=== PATIENT | male | born 1955 | race Caucasian/White ===

== ENCOUNTER → 2018-09-10 | Outpatient (CLI) | payer OTHER ==
--- NOTE | 2018-09-10 13:41 | CT ---
EXAMINATION TYPE: CT pelvis w con DATE OF EXAM: 09/10/2018 COMPARISON: None HISTORY: Prostate cancer. CT DLP: 1491 mGycm Automated exposure control for dose reduction was used. CONTRAST: CT scan of the pelvis is performed with IV Contrast, patient injected with 100 mL of Isovue M300. FINDINGS- There is a 8 mm sclerotic focus in the left iliac bone. No additional bony lesions are seen. Bowel gas pattern is nonspecific. Bladder has a normal appearance. Prostate is homogeneous. No eviden ce of pathologic adenopathy or free fluid. Atherosclerotic change of the vasculature. Visualized appe ndix normal. Portions of the spleen, liver., Adrenal glands and pancreas demonstrate no abnormality IMPRESSION: 1. There is a single 8 mm lesion involving the left iliac bone which demonstrates a sclerotic pattern . Despite the patient having a history of prostate cancer, the most likely etiology is a bone island. A bone scan is scheduled but has not been completed. Activity of this lesion can be evaluated with a bone scan is completed. Little or no activity would favor bone island. Intense activity would favor a metastatic lesion.
--- NOTE | 2018-09-10 15:53 | NM ---
EXAMINATION TYPE: NM bone scan whole body DATE OF EXAM: 09/10/2018 COMPARISON: CT pelvis same date HISTORY: Prostate cancer Delayed whole-body scanning was performed following the injection of 25.1 mCi Tc 99m MDP. Images acq uired 3 hours post injection. FINDINGS: There is mild increased uptake seen within the left ilium as compared to the right the site of patien t's sclerotic focus on CT. Uptake within the shoulders, sternoclavicular joints, knees, feet is likel y degenerative. Soft tissue uptake is normal. Uptake in the maxillary and mandibular regions likely d ue to periodontal disease. IMPRESSION: Cannot exclude metastatic focus to the left ilium. Asymmetric uptake is present to the left posterior ilium as compared to the right.
== END | disposition home or self-care (01) ==
LOC: RADNMMAIN 11:04
PROVIDERS: ATTEND Urology
DX: M89.9 Disorder of bone, unspecified (principal); C61 Malignant neoplasm of prostate
CPT/HCPCS: 72193; 78306; A9503; Q9967

== ENCOUNTER → 2018-10-14 | Outpatient (CLI) | payer OTHER ==
[2018-10-14 10:57] LABS: Basophils % (A) 1 %; Eosinophils # (A) 0.5 k/uL (0-0.7); Eosinophils % (A) 7 %; HCT 45.1 % (39.0-53.0); HGB 15.3 gm/dL (13.0-17.5); Lymphocytes # (A) 1.6 k/uL (1.0-4.8); Lymphocytes % (A) 24 %; MCH 31.8 pg (25.0-35.0); MCHC 33.8 g/dL (31.0-37.0); MCV 93.9 fL (80.0-100.0); Mean Platelet Volume 6.9; Monocytes # (A) 0.3 k/uL (0-1.0); Monocytes % (A) 5 %; Neutrophils % (A) 60 %; Platelet Count 282 k/uL (150-450); RDW 12.9 % (11.5-15.5); WBC 6.7 k/uL (3.8-10.6)
[2018-10-14 11:09] LABS: African American GFR (CKD) >90 (>60 ml/min/1.73 sqM); Anion Gap 8 mmol/L; Blood Urea Nitrogen 14 mg/dL (9-20); Calcium 9.2 mg/dL (8.4-10.2); Carbon Dioxide 27 mmol/L (22-30); Chloride 104 mmol/L (98-107); Glucose 108 mg/dL (74-99); Potassium 4.6 mmol/L (3.5-5.1); Sodium 139 mmol/L (137-145)
== END ==
LOC: LABPAT 09:46
PROVIDERS: ATTEND Urology
DX: Z01.818 Encounter for other preprocedural examination (principal); Z01.812 Encounter for preprocedural laboratory examination; C61 Malignant neoplasm of prostate; E86.0 Dehydration; R00.9 Unspecified abnormalities of heart beat
CPT/HCPCS: 36415; 80048; 85025; 93005

== ENCOUNTER 2018-10-21 10:56 | Day surgery (SDC) | payer OTHER ==
[2018-10-13 15:26] VITALS: BMI 19.3
--- NOTE | 2018-10-20 12:27 | P.GSHP ---
History of Present Illness H&P Date: 10/20/18 Chief Complaint: Prostate cancer The patient is a 63-year-old white male found to have an elevated PSA level of 21.0. FREDDIE revealed the prostate to be mildly enlarged and firm in consistency, with left-sided asymmetrical enlargement. Ultrasound revealed the prostate to be 27.5 mL in size, with left-sided capsular irregularity and diminished left- sided echogenicity. 11 out of 12 biopsies showed [place] 7, [place] 8, and [place] 9 adenocarcinoma. A bone scan and computed tomography scan showed a left iliac lesion, suspected to be a bone island. Alternative treatment options were reviewed, and he has elected to undergo a robotic-assisted laparoscopic prostatectomy with extended bilateral pelvic lymphadenectomy. He is aware of the fact that his cancer is locally advanced and possibly micrometastatic, and that he will likely require adjuvant therapy. - Respiratory Respiratory: Reports cough, Reports dyspnea, Reports wheezing - Genitourinary (Male) Genitourinary: Reports nocturia - Psychiatric Psychiatric: Reports anxiety, Reports insomnia Past Medical History Past Medical History: Atrial Fibrillation, Cancer, Prostate Disorder Additional Past Medical History / Comment(s): CA Prostate currently. Irreg HR, no Rx. Hx Genital Herpes. History of Any Multi-Drug Resistant Organisms: None Reported Past Surgical History: Tonsillectomy Past Anesthesia/Blood Transfusion Reactions: No Reported Reaction Smoking Status: Former smoker - Past Family History Mother Family Medical History: No Reported History Medications and Allergies Home Medications Medication Instructions Recorded Confirmed Type No Known Home Medications 10/13/18 10/13/18 History Allergies Allergy/AdvReac Type Severity Reaction Status Date / Time No Known Allergies Allergy Verified 10/13/18 15:08 Surgical - Exam - General well developed, well nourished, no distress - Neck no masses, trachea midline - Respiratory normal respiratory effort - Abdomen Abdomen: soft, non tender, no guarding, no rigid, no rebound - Genitourinary other (Multiple penile condyloma are noted up to 1 cm in size. The testes are normal.) - Rectum Rectum: normal sphincter tone, no masses, other (Prostate mildly enlarged, firm, left-sided asymmetrical enlargement) - Psychiatric oriented to time, oriented to person, oriented to place, speech is normal, memory intact Assessment and Plan (1) Malignant neoplasm of prostate Status: Acute Code(s): C61 - MALIGNANT NEOPLASM OF PROSTATE SNOMED Code(s): 326600010 Plan: Robotic-assisted laparoscopic prostatectomy with bilateral pelvic lymphadenectomy. The procedure has been reviewed in detail with the patient and his sister. Potential risks have been reviewed, which include anesthesia, bleeding, infection, intestinal injury, neurovascular injury, lymphocele, urinary leak, vesical neck contracture, urethral stricture, and hernia. The patient was made aware of the fact that he is not a candidate for a nerve sparing procedure, and as a result he will be impotent postoperatively. The possibility of post-prostatectomy urinary incontinence was reviewed in detail. He is aware of the likely need for adjuvant therapy. The procedure will be performed by Dr. Velasco.
[~2018-10-21 10:56] MED LIST: DEXAMETHASONE SOD PHOSPHATE 10 MG/ML 1 ML VIAL IV ONE; HEPARIN SODIUM,PORCINE 5,000 UNIT/ML 1 ML VIAL SQ ONE; LIDOCAINE 1% 20 ML VIAL (10MG/ML) FOR IV START INTRADERMA PRN; MIDAZOLAM 2 MG/2 ML VIAL IV PRN; ONDANSETRON 4 MG/2 ML VIAL IVP ONE; SCOPOLAMINE 1.5MG/72HR PATCH TRANSDERM ONE
[2018-10-21] MEDS: LACTATED RINGERS 1,000 ML IV SCH (11:51)
[2018-10-21] MEDS ORDERED: GLYCOPYRROLATE 0.2 MG/ML 2 ML VIAL ONE (13:04)
[2018-10-21] MEDS ORDERED: HYDROmorphone (PF) 1 MG/ML ONE (13:04)
[2018-10-21] MEDS ORDERED: ROCURONIUM BROMIDE 10 MG/ML 10 ML VIAL IV ONE (13:04)
[2018-10-21] MEDS ORDERED: MIDAZOLAM 2 MG/2 ML VIAL ONE (13:04)
[2018-10-21] MEDS ORDERED: NEOSTIGMINE 1 MG/ML 10 ML VIAL ONE (13:04)
[2018-10-21] MEDS ORDERED: SUCCINYLCHOLINE CHLORIDE 100 MG/5 ML SYR IV ONE (13:04)
[2018-10-21] MEDS ORDERED: LIDOCAINE 1% INJ 10MG/ML (20 ML MDV) ONE (13:04)
[2018-10-21] MEDS ORDERED: PROPOFOL 10 MG/ML 20 ML VIAL IV ONE (13:04)
[2018-10-21] MEDS ORDERED: fentaNYL (PF) 50 MCG/ML 2 ML AMP ONE (13:04)
[2018-10-21] MEDS ORDERED: KETOROLAC 30 MG/ML 1 ML VIAL ONE (13:04)
[2018-10-21] MEDS ORDERED: BUPIVACAINE (PF) 0.25% 30 ML VIAL SQ ONE ×2 (13:53)
[2018-10-21] MEDS: HYDROmorphone 0.5 MG/0.5 ML SYRINGE IVP PRN ×2 (17:00→17:07)
[2018-10-21] MEDS ORDERED: HYDROmorphone 1 MG/ML 1 ML SYRINGE IVP PRN (17:10)
[2018-10-21] MEDS ORDERED: ONDANSETRON 4 MG/2 ML VIAL IVP PRN (17:10)
[2018-10-21] MEDS: KETOROLAC 30 MG/ML 1 ML VIAL IVP SCH (18:35)
[2018-10-21] MEDS: HEPARIN SODIUM,PORCINE 5,000 UNIT/ML 1 ML VIAL SQ SCH (21:48)
[2018-10-21] MEDS: DEXTROSE 5%-0.45% NACL 1,000 ML IV SCH (21:48)
[2018-10-22] MEDS: KETOROLAC 30 MG/ML 1 ML VIAL IVP SCH ×2 (00:06→05:10)
[2018-10-22] MEDS: DEXTROSE 5%-0.45% NACL 1,000 ML IV SCH ×2 (00:06→08:01)
[2018-10-22] MEDS: HEPARIN SODIUM,PORCINE 5,000 UNIT/ML 1 ML VIAL SQ SCH (05:09)
[2018-10-22] MEDS: LACTATED RINGERS 1,000 ML IV SCH (06:03)
[2018-10-22 08:35] LABS: HCT 41.7 % (39.0-53.0); HGB 13.8 gm/dL (13.0-17.5); MCH 31.4 pg (25.0-35.0); MCHC 33.1 g/dL (31.0-37.0); Mean Platelet Volume 7.4; Platelet Count 310 k/uL (150-450); RBC 4.39 m/uL (4.30-5.90); RDW 14.3 % (11.5-15.5); WBC 9.8 k/uL (3.8-10.6)
[2018-10-22 08:41] LABS: African American GFR (CKD) >90 (>60 ml/min/1.73 sqM); Anion Gap 8 mmol/L; Blood Urea Nitrogen 15 mg/dL (9-20); Calcium 8.6 mg/dL (8.4-10.2); Carbon Dioxide 28 mmol/L (22-30); Chloride 101 mmol/L (98-107); Glucose 123 mg/dL (74-99); Non-African American GFR(CKD) >90 (>60 ml/min/1.73 sqM); Potassium 4.3 mmol/L (3.5-5.1); Sodium 137 mmol/L (137-145)
[2018-10-22] MEDS ORDERED: SENNOSIDES 8.6 MG TAB PO PRN (12:59)
--- NOTE | 2018-10-22 13:17 | P.PN ---
Subjective Progress Note Date: 10/22/18 Principal diagnosis: prostate cancer POD #1 S/P robotic prostatectomy. No acute overnight events pain is controlled tolerating a diet, has not ambulated yet Objective - Vital Signs Vital signs: Vital Signs Temp 98.3 F 10/22/18 07:00 Pulse 71 10/22/18 07:00 Resp 17 10/22/18 07:00 BP 135/81 10/22/18 07:00 Pulse Ox 97 10/22/18 07:00 Intake & Output 10/21/18 10/22/18 10/22/18 18:59 06:59 18:59 Intake Total 1750 Output Total 475 1550 Balance 1275 -1550 Weight 104.78 kg Intake: IV 1750 Output: Urine 400 1550 Estimated Blood Loss 75 Other: Voiding Method Indwelling Catheter - Constitutional General appearance: Present: no acute distress - Gastrointestinal Gastrointestinal Comment(s): incision clean dry and intact General gastrointestinal: Absent: distended, tenderness - Psychiatric Psychiatric: Present: A&O x's 3 - Labs CBC & Chem 7: 10/22/18 07:24 10/22/18 07:24 Labs: Abnormal Lab Results - Last 24 Hours (Table) 10/22/18 Range/Units 07:24 Glucose 123 H (74-99) mg/dL Assessment and Plan Assessment: 63-year-old male status post robotic prostatectomy Plan: regular diet Ambulate Discharge home today with follow-up 1 week for Hathaway removal
[2018-10-22 14:34] VITALS: BP 146/85; PULSE 77; RESP 16; TEMP 98.4
--- NOTE | 2018-10-22 17:51 | P.DS ---
Providers Date of admission: 10/22/2011 Expected date of discharge: 10/23/11 Attending physician: Madhu Velasco Primary care physician: [facility] Course: Mr Alcantar is a 63-year-old male status post robotic-assisted prostatectomy. He was admitted to the hospital postoperatively, he did well in the postoperative period. He was discharged on postop day 1 at time of discharge he was tolerating a diet ambulating his pain was well-controlled. He will follow up in 1 week for a catheter removal Assessment: 63-year-old male status post robotic prostatectomy Patient Condition at Discharge: Good Plan - Discharge Summary Discharge Rx Participant: Yes New Discharge Prescriptions: No Action No Known Home Medications Discharge Medication List No Known Home Medications 10/13/18 [History] Follow up Appointment(s)/Referral(s): Madhu Velasco MD [STAFF PHYSICIAN] - 10/30/18 3:15 pm Patient Instructions/Handouts: Hathaway Catheter Placement and Care (DC), Robot Assisted Laparoscopic Prostatectomy (DC) Activity/Diet/Wound Care/Special Instructions: -You may see some blood in the urine -Drink plenty of fluid -No heavy lifting or straining -No driving While catheter in place Discharge Disposition: HOME SELF-CARE
--- NOTE | 2018-12-31 16:09 | P.OP ---
Date of Procedure: 10/21/18 Preoperative Diagnosis: prostate cancer Postoperative Diagnosis: prostate cancer Procedure(s) Performed: Robotic radical prostatectomy Extended Pelvic lymphadenectomy Anesthesia: GOLD Surgeon: Madhu Velasco Estimated Blood Loss (ml): 100 IV fluids (ml): 1,200 Urine output (ml): 200 Pathology: other (prostate and seminal vesicles. Right and left pelvic lymph nodes) Condition: stable Disposition: PACU Indications for Procedure: prostate cancer Operative Findings: multiple enlarged bilateral nodes morbid obesity possible seminal vesicle invasion Description of Procedure: Adhesions were noted along the pelvis involving the lateral aspect of the sigmoid colon and taken down sharply. A dorsal vein stitch was placed after apical dissection. The seminal vesicles were excised with a scissors. Bilateral Nerve sparing was performed. Dissection was carried out with bipolar and scissors for the posterolateral dissection. Clips were used bilaterally. The bladder neck did not require reconstruction. Anastamosis was watertight when irrigated at completion. JOSE ARMANDO drain was not placed. Frozen sections were not taken - This is a patient with a history of prostate cancer. The procedure of robot assisted laparoscopic radical prostatectomy was discussed with the patient including the potential risks and complications of the procedure. He elected to proceed with the operation. A nodule was not detected on digital exam under anesthesia.The patient was placed in a supine, Trendelenberg position with adequate padding of the pressure points, shoulders, back, legs and arms. He was then prepped and draped in the standard fashion. A 18F dupree catheter was placed to gravity drainage. A Veress needle was placed through a francisca-umbilical puncture and a pneumo-peritoneum created to 20mmHg during port placement which is thereafter lowered to 15mmHg.A 12mm port on the left side of the umbilicus was placed for the scope. Next,under vision a 8mm robotic ports was placed later al to each rectus slightly below the camera port. The right political science research assistant right iliac fossa 12mm port and right paramedian 5mm port were placed followed by the left iliac fossa 5mm port. The robot was then docked to the 8mm robotic ports and then each robotic arm and tower was checked in relation to the patient's legs and hands to avoid inadvertent compression.The peritoneal cavity was inspected and then an inverted U-shaped incision began laterally to the left medial umbilical ligament and extended high across the midline to the right umbilical ligament. The limbs of the "U" extended to the level of the vasa on both sides. We next developed the preperitoneal space and the space of Retzius.Cautery was used to dissected thebladder away from the prostate. After the anterior bladder neck was incised and the bladder entered the the posterior bladder neck was exposed and the ureteral orifices identified. The posterior bladder neck was then incised and dissected away from the prostate. The bladder neck was noted to benormaland did notrequire reconstruction. The vas and the seminal vesicles were now exposed and dissected to their insertions into the prostate and were not spared. The posterior layer of the Denonvillier'sfascia was incised to enter into the plane between prostate and perirectal fat.Each lateral pedicle was controlled withclips and cautery for hemostasis. Nerve preservation was performed as listed above. The puboprostatic ligament was incised where it inserted into the apex of the prostate and a plane between urethra and dorsal venous complex developed to expose the anterior urethral surface. The anterior wall of the urethra was transected with the scissors a few millimeters distal to the apex of the prostate. DV suture was placed. The freed specimen was then inspected and placed in an endo-catch specimen retrieval bag. The prostate was removed following the completion of the anastomosis.Internal and External Iliac lymph node packets were dissected after careful visualization of the hypogastric artery and obturator nerve. There was attention paid to hemostasis with judicious use of cautery.Two 3-0 V-Lock stitches (MVAC) tied together to form a pledget were used to complete the running continuous circumferential urethrovesical anastamosis with dual layer reconstruction. The outer layer V-Lock suture was placed initially to reapproximate Denonvillier's fascia posteriorly before placing the inner layer MVAC suture as the urethrovesical anastamosis proper. After the inner layer was tied, the anastamosis was checked for leaks before closing the outer layer anteriorly. A new 20 [place] Dupree catheter was introduced and inflated to 20cc. The bladder was filled with 250 cc saline, with the balloon to test the integrity of the anastomosis.No leak was identified.A 14 khmer punch suprapubic tube was inserted percutaneously and guided into the bladder with robotic assistance with 200 cc placed into the bladder. The bladder was then pulled to the anterior abdominal wall with a preplaced suture on a Dejuan needle that was delivered alongside the SPT, then purse-stringed around the catheter and delivered back out of the body alongside the SPT.The specimenwas removed after enlarging the umbilical port incision as required. The umbilical fascia was closed with PDS suture and closed in layers. All ports were closed with a subcuticular stitch. Sponge, instrument, and needle counts were correct at the end of the case. The patient tolerated the procedure well and was accompanied to the recovery room in stable condition
== END 2018-10-22 15:08 | disposition home or self-care (01) ==
LOC: OR 10:56 → 4SSUR 16:11 → OR 10-22 15:08
PROVIDERS: ATTEND Urology
DX: C61 Malignant neoplasm of prostate (principal); C77.5 Secondary and unspecified malignant neoplasm of intrapelvic lymph nodes; F41.9 Anxiety disorder, unspecified; G47.00 Insomnia, unspecified; I48.91 Unspecified atrial fibrillation; Z86.19 Personal history of other infectious and parasitic diseases; Z90.89 Acquired absence of other organs; Z87.891 Personal history of nicotine dependence
CPT/HCPCS: 86900; 86901; 80048; 85027; 86850; 88307; 88309; 55866; 38571; C1762; J2250; J1644 ×2; J1100; J2710; J0690 ×2; J2405; J2001; J3010; J1885 ×2; J1170 ×2; J0330; J2704